=== PATIENT | female | born 1960 | race Caucasian/White ===

== ENCOUNTER 2023-09-11 15:22 | Emergency (ER) | payer MEDICARE, SELFPAY ==
[2023-09-11 15:22] VITALS: BMI 35.6
[2023-09-11 15:23] VITALS: BP 133/87
[2023-09-11 15:54] VITALS: BP 130/68
[2023-09-11 15:55] VITALS: BP 135/82
[2023-09-11 15:57] VITALS: BP 129/90
[2023-09-11 16:00] VITALS: BP 126/67
[2023-09-11 16:02] VITALS: BP 129/90; BP 130/68; BP 135/82; PULSE 78; PULSE 86; PULSE 91
--- NOTE | 2023-09-11 16:02 | ED.GENMED ---
History of Present Illness
<Nedra Ornelas LOCOMOTIVE DRIVER - Last Filed: 09/11/23 21:41>
General
Chief Complaint: Dizziness
Source: patient
Exam Limitations: none
Time Seen by Provider: 09/11/23 16:01
Nursing documentation reviewed up to this point in time: agreed with
Travel History
Have you had any contact with someone who has COVID-19?: No
Do you have any symptoms of coronavirus? Fever > 100 degrees, chills, cough, shortness of breath, sore throat, loss of taste or smell, muscle aches, or headache?: No
History of Present Illness
History of Present Illness:
62-year-old female with history of brain nodule diagnosed 2014, HTN, HLD presents stating she let her dog out at 6 a.m. and 'didn't feel right' felt lightheaded and needed to sit down. Subsided after several seconds.
Patrick well until 1:30 p.m. when she was walking down her steps outside toward her car and felt imbalanced and was listing to the right and felt she had to hold on to her car door for balance. This lasted about 3 minutes then subsided completely and
she was able to drive.
Denies headache, recent head injury, change in vision, denies n/v. Denies UTI symptoms. Denies SOB, CP, abd pain. Denies weakness in extremities. Left hand did feel numb during above episodes. Symptoms have completely subsided
She states where her brain nodule is located, it impacts 'my balance, my vision and short term memory.' She is followed by [facility] and is due for her yearly MRI soon. She also has chronic intermittent numbness in her left hand and leg.
Past History
<Nedra Ornelas LOCOMOTIVE DRIVER - Last Filed: 09/11/23 21:41>
Past History
ED Past Medical History: HTN, Hypercholesterolemia and Other (Brain nodule)
ED Past Surgical History: Orthopedic
Social History
Tobacco: Non-smoker
Alcohol: None
Personal: Single
Living: alone
Employment: Employed
Review of Systems
<Nedra Ornelas, LOCOMOTIVE DRIVER - Last Filed: 09/11/23 21:41>
Review of Systems
Allergies reviewed?: Yes
All Other Systems: ROS reviewed and negative except as documented in HPI and ROS
Constitutional: Denies fever or fatigue
EENT: Reports other (chronic intermittent 'vision problems' due to position of brain nodule)
Respiratory: Denies trouble breathing
Cardiac: Denies chest pain or syncope
ABD/GI: Denies abdominal pain or nausea
: Denies dysuria or difficulty voiding
Musculoskeletal: Reports no symptoms
Skin: Reports no symptoms
Neurological: Reports dizzy, numbness (chronic intermittent numbness of left hand and leg) and other (chronic intermittent balance problems and short term memory loss due to position of brain nodule); Denies headache or weakness
Phy Exam
<Nedra Ornelas, LOCOMOTIVE DRIVER - Last Filed: 09/11/23 21:41>
Physical Exam
Physical Exam:
GENERAL: No acute distress. A&Ox3.
CONSTITUTIONAL: Afebrile.
EYES: PERRL, conjunctivae normal
Neck: Supple
ENMT: moist mucus membranes, Pharynx nl, TMs normal
RESPIRATORY: Regular respirations, nonlabored, lungs clear.
CARDIOVASCULAR: Regular rate and rhythm, no murmurs, no rubs.
GI: Soft, nontender, normal BS
MUSCULOSKELETAL: Moves with ease. Well perfused.
SKIN: Warm, dry, pink
PSYCH: Normal mood and affect. Well kept, interactive and appropriate
NEUROLOGIC: Awake, alert and oriented. No focal neurological deficits. finger to nose intact. Strength equal throughout. Ambulates well with normal gait.
Course
<Nedra Ornelas, LOCOMOTIVE DRIVER - Last Filed: 09/11/23 21:41>
Orders/Labs/Results
Orders:
Orders
09/11/23 15:29
Electrocardiogram (*1) Urgent
Reason for Study: Vertigo / Dizzy
09/11/23 15:30
EKG- Treatment ONCE
09/11/23 16:33
Physical Therapy Consult [Pt Eval And Treat] Urgent
Treatment: Vestibular evaluation
Activity Level: As Tolerated
09/11/23 17:27
CT Head W/o Iv Contrast Urgent
Comment:
Reason For Exam: Transient disequilibrium
Cardiac Monitoring- Treatment ONCE
IV Insert/Care/Rem.- Treatment PRN
0.9% Sodium Chloride 500 ml [Nss] 500 ml IV BOLUS
Pulse Ox/cont/shift [RESP] Stat
Quantity: 1
09/11/23 18:06
Basic Metabolic Panel Urgent
Complete Blood Count/With Diff Urgent
Abnormal Lab Results
09/11/23
18:06
MPV 10.7 H fL
(7.4-10.4)
BUN 22 H mg/dl
(7-17)
09/11/23 18:06
09/11/23 18:06
Vital Signs
Initial and Last Documented VS:
Initial Vital Signs
Temp Pulse Resp BP Pulse Ox
99.7 F 86 16 133/87 98
09/11/23 15:23 09/11/23 15:23 09/11/23 15:23 09/11/23 15:23 09/11/23 15:23
Last Documented Vital Signs
Temp Pulse Resp BP Pulse Ox
99.7 F 81 17 126/67 95
09/11/23 15:23 09/11/23 21:30 09/11/23 21:30 09/11/23 16:00 09/11/23 21:15
[employer]base Developer consulted with Physician
[employer]base Developer consulted with physician?: Yes
Name of Physician Consulted: Burton
<Loyd Manrique MD - Last Filed: 09/11/23 19:39>
Orders/Labs/Results
Orders:
Orders
09/11/23 15:29
Electrocardiogram (*1) Urgent
Reason for Study: Vertigo / Dizzy
09/11/23 15:30
EKG- Treatment ONCE
09/11/23 16:33
Physical Therapy Consult [Pt Eval And Treat] Urgent
Treatment: Vestibular evaluation
Activity Level: As Tolerated
09/11/23 17:27
CT Head W/o Iv Contrast Urgent
Comment:
Reason For Exam: Transient disequilibrium
Cardiac Monitoring- Treatment ONCE
IV Insert/Care/Rem.- Treatment PRN
0.9% Sodium Chloride 500 ml [Nss] 500 ml IV BOLUS
Pulse Ox/cont/shift [RESP] Stat
Quantity: 1
09/11/23 18:06
Basic Metabolic Panel Urgent
Complete Blood Count/With Diff Urgent
Abnormal Lab Results
09/11/23
18:06
MPV 10.7 H fL
(7.4-10.4)
BUN 22 H mg/dl
(7-17)
09/11/23 18:06
09/11/23 18:06
Vital Signs
Initial and Last Documented VS:
Initial Vital Signs
Temp Pulse Resp BP Pulse Ox
99.7 F 86 16 133/87 98
09/11/23 15:23 09/11/23 15:23 09/11/23 15:23 09/11/23 15:23 09/11/23 15:23
Last Documented Vital Signs
Temp Pulse Resp BP Pulse Ox
99.7 F 81 17 126/67 95
09/11/23 15:23 09/11/23 21:30 09/11/23 21:30 09/11/23 16:00 09/11/23 21:15
<Nedra Ornelas LOCOMOTIVE DRIVER - Last Filed: 09/11/23 21:41>
MDM/Problems Addressed
Differential Diagnosis Includes:
BPPV, vestibular neuritis, labyrinthitis, TIA
MDM/Problems Addressed:
62-year-old female with history of brain nodule diagnosed 2014, HTN, HLD presents stating she let her dog out at 6 a.m. and 'didn't feel right' felt lightheaded and needed to sit down. Subsided after several seconds.
Patrick well until 1:30 p.m. when she was walking down her steps outside toward her car and felt imbalanced and was listing to the right and felt she had to hold on to her car door for balance. This lasted about 3 minutes then subsided completely and
she was able to drive.
Denies headache, recent head injury, change in vision, denies n/v. Denies UTI symptoms. Denies SOB, CP, abd pain. Denies weakness in extremities. Left hand did feel numb during above episodes. Symptoms have completely subsided
She states where her brain nodule is located, it impacts 'my balance, my vision and short term memory.' She is followed by [facility] and is due for her yearly MRI soon. She also has chronic intermittent numbness in her left hand and leg.
MRI Brain 12/01/22 result reviewed: 'There is a stable 7 mm nodular focus of T2/FLAIR hyperintense signal at the lateral margin of the atrium of the right lateral ventricle (series 801, image 16). This is unchanged in size and signal characteristics
compared to the previous brain MRI. No post contrast enhancement is identified.'
5:00 PM
Do not suspect symptoms have anything to do with her brain nodule as they are intermittent and she has long periods of time is between symptoms where she is asymptomatic.
Physical therapy and to evaluate for BPPV which was neg; Pt completely asymptomatic for their evaluation.
With recent flu which was 'bad' may very well be viral labyrinthitis/neuritis
Case discussed with Dr. Manrique who evaluated patient.
6:[address] unremarkable
Pt awaiting Carotid US. If neg, will DC on baby asa and she will get her MRI and f/u with her neurologist at [facility]
Pt will get carotid US as out pt. if her neurologist recommends
<Nedra Ornelas NP - Last Filed: 09/11/23 21:41>
*EKG
Interpreted by ED Provider?: Yes
EKG Intrepretation Date: 09/11/23
Interpretation: normal
Rate: normal
Rhythm: sinus
Rodeo: normal axis
Interval: normal interval
QRS Pattern: normal QRS
Ischemia: no ischemia
*Critical Care Note
Total Time (30-74mins, 75-104mins- exclusive of procedures): Not Applicable
ED Attending Note
<Nedra Ornelas NP - Last Filed: 09/11/23 21:41>
-
Portions of this chart may have been created with voice recognition software.� Occasional wrong word or��sound alike� substitutions may have occurred due to the inherent limitations of voice recognition software.
<Loyd Manrique MD - Last Filed: 09/11/23 19:39>
ED Attending Note
Patient seen and examined by attending physician: Yes
I performed the substantive portion of visit, reviewed & personally made and approve the management plan that is documented in note by myself or YOUSIF.: Yes
ED Attending Note:
62-year-old female with 2 episodes of disequilibrium. First lasted a few minutes this morning around 6 AM. Second episode was early afternoon when she felt like she was walking to the right. This was also brief in nature. No headache visual
issues weakness. No syncope or presyncopal symptoms. Patient feels great at this time. No history of similar episodes. 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 This is followed at [facility]. This has been stable for years.
On exam patient is nontoxic in no distress. Warm and dry. Laughing and interacting appropriately. Lungs clear and equal. Heart regular rate and rhythm no murmur. No carotid bruit. Abdomen nontender. Speech is normal. Cranial nerves II
through XII intact. [id number] normal. [id number] normal. Light touch intact.
Patient not describing syncope. More brief episodes of disequilibrium. Theoretically this could be a TIA although a very benign exam and a normal neurologic exam. We will do labs head CT carotid ultrasound if all stable start an aspirin to
follow-up closely. She is supposed to have an outpatient follow-up MRI for her small benign tumor. Do not feel this is likely a factor in this issue today
Discharge Plan
Departure
Patient Disposition: Home (Routine Discharge)
Date of Disposition: 09/11/23
Time of Disposition: 21:22
Patient with high blood pressure during this ER visit?: No
Condition: Good
Discharge Problem:
Episode of dizziness
Instructions: Transient ischemic attack, Dizziness, Nonvertigo, (DC)
Prescriptions:
No Action
losartan 50 mg Tablet
100 mg PO HS
atorvastatin 10 mg Tablet
10 mg PO HS
Referrals:
Your, Neurologist at [facility] [Other] - Keep scheduled appt
Susanne Landry PA-C [Family Provider] -
Activity Restrictions/Additional Instructions:
As we discussed, your workup here today shows nothing worrisome.
Take Baby aspirin daily and follow up with your neurologist as scheduled after your brain MRI
You can get carotid ultrasound as an out pt, please discuss with your neurologist
Although doubtful that you had this, I have provided you with instructions for TIA or mini stroke FYI
Return here immediately for worsening dizziness, weakness, facial droop, slurred speech or anything that concerns you.
Interventions
Interventions:
*Risk Screen - Suicide Last Done: 09/11/23 16:03
*General Assessment Last Done: 09/11/23 16:03
ED- Fall Risk Assessment Last Done: 09/11/23 16:03
*ED COVID-19 Vaccine History Last Done: 09/11/23 15:25
ED- Neurological Assessment Last Done: 09/11/23 16:03
ED- Cardiac Assessment Last Done: 09/11/23 16:03
ED Swallowing Screen Last Done: 09/11/23 18:33
Discharge Date and Time
Print Language: SPANISH
[2023-09-11] MEDS: NSS 500 IV (18:05)
[2023-09-11 18:11] LABS: % Basophils 0.4 % (0-2); % Eosinophils 3.6 % (0-6); % Immature Granulocytes 0.1 % (0-0.5); % Lymphocytes 30.9 % (20.5-51.1); % Monocytes 7.4 % (1.7-9.3); % Neutrophils 57.6 % (42.2-75.2); Absolute Eosinophils 0.3 10^3/uL (0-0.7); Absolute Lymphocytes 2.4 10^3/uL (1.2-3.4); Absolute Monocytes 0.6 10^3/uL (0.1-0.6); Absolute Neutrophils 4.5 10^3/uL (1.4-6.5); Hematocrit 39.1 % (37.0-47.0); Mean Corp Hgb Conc. 33.2 g/dL (33.0-37.0); Mean Corpuscular Hgb 28.9 pg (27.0-31.0); Mean Corpuscular Volume 86.9 fL (81.0-99.0); Mean Platelet Volume 10.7 fL (7.4-10.4); Nucleated Red Blood Cells % 0 %; Platelet Count 296 10^3/uL (130-400); Red Cell Dist. Width 13.4 % (11.5-14.5); White Blood Cell Count 7.9 10^3/uL (4.8-10.8)
[2023-09-11 18:26] LABS: Blood Urea Nitrogen 22 mg/dl (7-17); Calcium 9.8 mg/dl (8.4-10.2); Carbon Dioxide 26 mmol/L (22-30); Chloride 106 mmol/L (98-107); Estimated Creatinine Clearance 65 ml/min; Glucose 97 mg/dl (70-99); Sodium 138 mmol/L (135-145); eGFR > 60.00
== END 2023-09-11 21:48 | disposition home or self-care (01) ==
LOC: EMR 15:22
PROVIDERS: EMERGENCY PHYSICIAN Emergency Medicine; FAMILY PHYSICIAN Physician Assistant Medical
DX: R42 Dizziness and giddiness (principal); I10 Essential (primary) hypertension; E78.00 Pure hypercholesterolemia, unspecified
CPT/HCPCS: 99284; 70450; 80048; 85025; 93005

== ENCOUNTER → 2025-02-23 11:01 | Outpatient (REF) | payer MEDICARE, SELFPAY | LOC: PAVMRI 11:01 | PROVIDERS: ATTENDING PHYSICIAN Psychiatry & Neurology Neurology; FAMILY PHYSICIAN Physician Assistant Medical | DX: D43.2 Neoplasm of uncertain behavior of brain, unspecified (principal) | CPT/HCPCS: 70553; A9575 ==